=== PATIENT | female | born 1995 | race Asian ===

== ENCOUNTER 2017-08-26 08:28 | Emergency (ER) | payer OTHER ==
[~2017-08-26] VITALS: Ht 170.2 cm; Wt 68.0 kg
[2017-08-26 08:54] VITALS: BP 140/82
== END 2017-08-26 10:05 | disposition home or self-care (01) ==
LOC: ER 08:33
DX: S83.8X2A Sprain of other specified parts of left knee, initial encounter (principal); Z88.1 Allergy status to other antibiotic agents; X50.0XXA Overexertion from strenuous movement or load, initial encounter; Y93.89 Activity, other specified; Y99.8 Other external cause status; Y92.89 Other specified places as the place of occurrence of the external cause
CPT/HCPCS: 73562